=== PATIENT | male | born 1985 | race African-American/Black ===

== ENCOUNTER 2018-01-24 11:18 | Emergency (ER) | payer SELFPAY ==
[~2018-01-24] VITALS: Ht 185.4 cm; Wt 99.8 kg
[2018-01-24] MEDS ORDERED: KEFLEX500 MG ORAL (12:07)
[2018-01-24] MEDS ORDERED: DOXYCYCLINE MO100 MG ORAL (12:07)
[2018-01-24 12:18] VITALS: BP 145/90
[2018-01-24 12:19] VITALS: BP 145/90
--- NOTE | 2018-01-24 14:12 | Emergency Room Report ---
History of Present Illness General Chief Complaint: Skin Rash/Abscess Source: Patient Present Illness HPI 32-year-old male, presenting with right facial redness and swelling. States that he was shaving, felt like it ingrown hairs, became red the last 2 days. No fever no chills. Allergies: Coded Allergies: No Known Allergies (Unverified , 01/24/18) Patient History Past Medical History: see triage record Past Surgical History: none Pertinent Family History: none Reviewed Nursing Documentation: PMH: Agreed, PSxH: Agreed Nursing Documentation-PMH Hx Asthma: Yes Review of Systems All Other Systems: negative except mentioned in HPI Physical Exam Vital Signs Date Time Temp Pulse Resp B/P (MAP) Pulse Ox O2 Delivery O2 Flow Rate FiO2 01/24/18 11:40 98.8 90 17 152/91 99 Room Air 98.8 Sp02 EP Interpretation: reviewed, normal General Appearance: normal inspection, well appearing, no apparent distress, alert, GCS 15, non-toxic Head: normocephalic, atraumatic Eyes: bilateral eye normal inspection, bilateral eye PERRL, bilateral eye EOMI ENT: normal ENT inspection, normal pharynx, normal voice, moist mucus membranes Neck: normal inspection, full range of motion, supple Respiratory: normal inspection, lungs clear, normal breath sounds, no respiratory distress, no retraction, no wheezing, speaking full sentences, chest symmetrical Cardiovascular #1: normal inspection, regular rate, rhythm, no edema, normal capillary refill Cardiovascular #2: 2+ radial (R), 2+ radial (L) Gastrointestinal: normal inspection, non tender, soft, non-distended, no guarding Musculoskeletal: normal inspection, back normal, normal range of motion, non- tender Neurologic: normal inspection, alert, oriented x3, responsive, motor strength/ tone normal, sensory intact, normal gait, speech normal Psychiatric: normal inspection, judgement/insight normal, memory normal Skin: warm/dry, well hydrated, normal turgor, other - Right lower mandibular area with one by one area of erythema, induration. No fluctuance. No purulent drainage Medical Decision Making Diagnostic Impression: Primary Impression: Cellulitis and abscess of face ER Course 32-year-old male p/w bump/swelling to R lower face DDX: abscess Plan: Incision and drainage not performed, area is not fluctuant, DC home with ABX ER course: Stable Disposition: Patient discharged to home with keflex and doxycycline. Patient instructed to follow up in ED or primary care doctor's office to wound recheck in 48 hours without fail. Patient cautioned to return to ED if there is rapid spread of rash, high fever or chills. Patient verbalized understanding and agrees with plan. Please note that this Emergency Department Report was dictated using [employer]thro[employer] tester technology software, occasionally this can lead to erroneous entry secondary to interpretation by the dictation equipment. Last Vital Signs Date Time Temp Pulse Resp B/P (MAP) Pulse Ox O2 Delivery O2 Flow Rate FiO2 01/24/18 12:19 98.8 85 17 145/90 99 Room Air 98.8 Disposition: HOME, SELF-CARE Condition: Improved Scripts Doxycycline Monohydrate* (DOXYCYCLINE MONOHYDRATE*) 100 Mg Capsule 100 MG ORAL Q12H for 7 Days, #14 CAP 0 Refills Prov: Cuong Odonnell M.D. 01/24/18 Cephalexin* (KEFLEX*) 500 Mg Capsule 500 MG ORAL Q6H, #28 CAP 0 Refills Prov: Cuong Odonnell M.D. 01/24/18 Referrals: NOT CHOSEN CARINE/,REFERRING (PCP) Patient Instructions: Abscess Additional Instructions: PLEASE FOLLOW UP IN 48 HOURS FOR WOUND RECHECK Cuong Odonnell M.D. Jan 24, 2018 14:12
== END 2018-01-24 12:19 | disposition home or self-care (01) ==
LOC: EMR 12:03
DX: L03.211 Cellulitis of face (principal); L02.01 Cutaneous abscess of face; J45.909 Unspecified asthma, uncomplicated
CPT/HCPCS: 99283

== ENCOUNTER 2018-06-06 20:55 | Emergency (ER) | payer SELFPAY ==
[~2018-06-06] VITALS: Ht 185.4 cm; Wt 97.5 kg
[~2018-06-06 20:55] MED LIST: DOXYCYCLINE MO100 MG ORAL; KEFLEX500 MG ORAL
[2018-06-06] MEDS ORDERED: NKM (21:39)
[2018-06-06 21:45] VITALS: BP 132/85
[2018-06-06] MEDS ORDERED: Hydrogen Peroxide 473ml Bottle TOPIC ONE (21:45)
[2018-06-06] MEDS ORDERED: Tylenol #3 tab (300mg/30mg) ORAL ONE (23:15)
[2018-06-06] MEDS ORDERED: Cephalexin 500mg cap ORAL ONE (23:15)
[2018-06-06] MEDS ORDERED: IBUPROFEN600 MG ORAL (23:22)
[2018-06-06] MEDS ORDERED: CEPHALEXIN500 MG ORAL (23:22)
[2018-06-06 23:30] VITALS: BP 132/85
--- NOTE | 2018-06-07 03:19 | Emergency Room Report ---
History of Present Illness General Chief Complaint: Laceration Source: Patient Present Illness HPI Patient reports that he had trauma to the top part of his scalp yesterday over 12 hours ago He had put a cover over it And recently shaved his head which revealed that he had a larger cut than he had thought he had Denies any lapse of consciousness denies any visual changes denies any focal weakness Denies any back or flank pain he had some mild discomfort to the lacerated area Allergies: Coded Allergies: No Known Allergies (Unverified , 01/24/18) Patient History Past Medical History: see triage record Pertinent Family History: none Reviewed Nursing Documentation: PMH: Agreed; PSxH: Agreed Nursing Documentation-PMH Past Medical History: No History, Except For Hx Asthma: Yes Review of Systems All Other Systems: negative except mentioned in HPI Physical Exam Vital Signs Date Time Temp Pulse Resp B/P (MAP) Pulse Ox O2 Delivery O2 Flow Rate FiO2 06/06/18 21:36 98.1 97 16 132/85 96 Room Air 98.1 Sp02 EP Interpretation: reviewed, normal General Appearance: well appearing, no apparent distress Head: other - Approximately 3 cm laceration top right parietal region of scalp Eyes: bilateral eye PERRL ENT: hearing grossly normal, normal pharynx Neck: full range of motion, supple Respiratory: chest non-tender, lungs clear Cardiovascular #1: regular rate, rhythm Gastrointestinal: normal bowel sounds, non tender Musculoskeletal: normal inspection Neurologic: alert, oriented x3, responsive Skin: other - As above Lymphatic: no adenopathy Procedures Laceration/Wound Repair Laceration/Wound Repair : Consent: Verbal Wound Location: head Wound's Depth, Shape: into muscle Wound Length (cm): 3 Wound Explored: contaminated Irrigated w/ Saline (ccs): 300 Betadine Prep?: Yes Wound Debrided: moderate Wound Repaired With: lucila - 3 Sterile Dressing Applied?: Yes Patient Tolerated: Well Complications: None Progress After copious cleansing, the area is large enough that will require some approximation, this is a delayed approximation and closure therefore 3 lucila were placed for appropriate approximation Medical Decision Making Diagnostic Impression: Primary Impression: Laceration ER Course Patient is presenting with a delayed laceration the area is fairly large and there is separation of the skin After copious cleansing it is felt that the patient would benefit from some approximation of the skin therefore 3 lucila were placed in an interrupted fashion And patient requires close outpatient follow-up Last Vital Signs Date Time Temp Pulse Resp B/P (MAP) Pulse Ox O2 Delivery O2 Flow Rate FiO2 06/06/18 23:30 98.1 78 16 132/85 96 Room Air 98.1 Status: improved Disposition: HOME, SELF-CARE Condition: Improved Scripts Ibuprofen* (MOTRIN*) 600 Mg Tablet 600 MG ORAL Q8H PRN for For Pain, #20 TAB 0 Refills Prov: Mendez Price DO 06/06/18 Cephalexin* (KEFLEX*) 500 Mg Capsule 500 MG ORAL EVERY 6 HOURS for 7 Days, CAP Prov: Mendez Price DO 06/06/18 Referrals: NOT CHOSEN [facility]/MD,REFERRING (PCP) Patient Instructions: Laceration Care, Adult Additional Instructions: Please note that you're laceration occurred 2 days ago. The laceration was approximated with 3 lucila, however there is likely chance of infection. Please follow up closely with her clinic in the next 2-3 days or return to the ER with any worsening symptoms Mendez Price DO Jun 07, 2018 03:19
== END 2018-06-06 23:30 | disposition home or self-care (01) ==
LOC: EMR 21:24
DX: S01.01XA Laceration without foreign body of scalp, initial encounter (principal); W22.8XXA Striking against or struck by other objects, initial encounter; Y92.9 Unspecified place or not applicable; J45.909 Unspecified asthma, uncomplicated
CPT/HCPCS: 99284

== ENCOUNTER 2019-01-05 08:14 | Emergency (ER) | payer OTHER ==
[~2019-01-05] VITALS: Ht 185.4 cm; Wt 102.1 kg
[~2019-01-05 08:14] MED LIST changes: +CEPHALEXIN500 MG ORAL; +IBUPROFEN600 MG ORAL; +NKM
[2019-01-05 08:21] VITALS: BP 129/84
--- NOTE | 2019-01-05 08:23 | NUR ---
ED Nurse Note: A/OX4. AMBULTAED IN TO ER DUE TO WHITISH DISCHARGE FROM RIGHT EAR X1 WEEK. PT STATES THAT THE SYMPTOMS STARTED AFTER STAYING AT A [facility]. DENIES ANY PAIN. C/O SLIGHT ITCHING AND SLIGHT SWELLING.
[2019-01-05] MEDS ORDERED: IBUPROFEN600 MG ORAL (08:57)
[2019-01-05] MEDS ORDERED: CEPHALEXIN500 MG ORAL (08:57)
[2019-01-05] MEDS ORDERED: BACTRIM DS TAB1 EAC1 ORAL (08:57)
[2019-01-05 09:02] VITALS: BP 129/84
--- NOTE | 2019-01-05 09:03 | NUR ---
ED Nurse Note: Pt cleared DC by Dr. avery. Pt is A/Ox4, VSS, DC instruction and prescriptions given, pt verbalized understanding. ID wristband removed. All belongings given to pt. Pt ambulated out of ER with steady gait.
--- NOTE | 2019-01-05 10:02 | Emergency Room Report ---
History of Present Illness General Chief Complaint: Earache Source: Patient Present Illness HPI 33-year-old male presents ED for evaluation. Complaining of right ear pain. States that he was sleeping in a hotel and got insect bites on his face. Notes one above his right eyebrow and one near his ear. States the ear has gotten swollen since. Pain is throbbing, 6 out of 10, nonradiating. Noted discharge initially but denies any at this time. Denies fevers or chills. No other aggravating relieving factors. Denies any other associated symptoms Allergies: Coded Allergies: No Known Allergies (Unverified , 01/24/18) Patient History Past Medical History: asthma Past Surgical History: none Pertinent Family History: none Social History: Denies: smoking, alcohol use, drug use Immunizations: UTD Reviewed Nursing Documentation: PMH: Agreed; PSxH: Agreed Nursing Documentation-PMH Past Medical History: No Stated History Hx Asthma: Yes Review of Systems All Other Systems: negative except mentioned in HPI Physical Exam Vital Signs Date Time Temp Pulse Resp B/P (MAP) Pulse Ox O2 Delivery O2 Flow Rate FiO2 01/05/19 08:20 98.1 95 16 129/84 99 Room Air Sp02 EP Interpretation: reviewed, normal General Appearance: no apparent distress, alert, GCS 15, non-toxic Head: normocephalic Eyes: bilateral eye normal inspection, bilateral eye PERRL ENT: TMs + canals normal, other - swellign, TTP to tragus R ear. no fluctuance or discharge Neck: normal inspection Respiratory: normal inspection Cardiovascular #1: normal inspection Gastrointestinal: normal inspection Rectal: deferred Genitourinary: no CVA tenderness Musculoskeletal: normal inspection Neurologic: alert, oriented x3, responsive, motor strength/tone normal, sensory intact, speech normal Psychiatric: normal inspection Skin: normal inspection Lymphatic: normal inspection Medical Decision Making Diagnostic Impression: Primary Impression: Insect bite Qualified Codes: S00.461A - Insect bite (nonvenomous) of right ear, initial encounter; W57.XXXA - Bitten or stung by nonvenomous insect and other nonvenomous arthropods, initial encounter ER Course Hospital Course 33-year-old male presents to ED with pain to R ear Differential diagnoses include: otitis grady, otitis externa, cellulitis Clinical course Patient placed on stretcher. After initial history, physical exam reveals a male in no acute distress. On exam there is pain and swelling to the right tragus of the ear. No fluctuance or discharge. TM unremarkable. No ear canal swelling. Is likely secondary to insect bite patient described. We'll discharge with antibiotics. Warm compresses. Safe for discharge close outpatient follow-up. States he has a PMD Diagnosis - bug bite stable and discharged to home with prescription for bactrim, Keflex. Instructed to followup with PMD. Instructed return to ED if symptoms recur or worsen Last Vital Signs Date Time Temp Pulse Resp B/P (MAP) Pulse Ox O2 Delivery O2 Flow Rate FiO2 01/05/19 09:02 98.1 91 16 129/84 99 Room Air Status: improved Disposition: HOME, SELF-CARE Condition: Stable Scripts Ibuprofen* (MOTRIN*) 600 Mg Tablet 600 MG ORAL THREE TIMES A DAY, #30 TAB 0 Refills Prov: Troy Barahona MD 01/05/19 Cephalexin* (KEFLEX*) 500 Mg Capsule 500 MG ORAL EVERY 6 HOURS for 7 Days, CAP Prov: Troy Barahona MD 01/05/19 Trimethoprim/Sulfamethoxazole 160/800* (BACTRIM DS TABLET*) 1 Each Tablet 1 TAB ORAL Q12H, #14 TAB 0 Refills Prov: Troy Barahona MD 01/05/19 Patient Instructions: Insect Bite, [id number] Troy Barahona MD Jan 05, 2019 10:01
== END 2019-01-05 09:03 | disposition home or self-care (01) ==
LOC: EMR 08:47
DX: S00.461A Insect bite (nonvenomous) of right ear, initial encounter (principal); W57.XXXA Bitten or stung by nonvenomous insect and other nonvenomous arthropods, initial encounter; Y92.9 Unspecified place or not applicable; J45.909 Unspecified asthma, uncomplicated
CPT/HCPCS: 99282